=== PATIENT | female | born 1960 | race Caucasian/White ===

== ENCOUNTER 2024-12-01 06:02 | Day surgery (SDC) | payer MEDICARE, MEDICAID ==
[2024-12-01] VITALS (11 sets, daily range): BP systolic 128–154; BP diastolic 64–80; TEMP 97.2–98.1; O2SAT 91–96
[~2024-12-01] VITALS: Ht 167.6 cm; Wt 95.3 kg
[~2024-12-01 06:02] MED LIST: ALEN70TA82 PO; AMIT50TA PO; ANOR1AER INH; ATOR40TA75 PO; DULO20CA27 PO; HM C500T4 PO; HYDR-3490 PO; IBUP1TAB6 PO; IPRA0.00 INH; METO100T5 PO; THERTAB52 PO; VITA1CAP55 PO
[2024-12-01] MEDS ORDERED: ACETAMINOPHEN 1000MG/100ML IV BAG As Ordered ONE (06:45)
[2024-12-01] MEDS ORDERED: SUGAMMADEX SODIUM 500 MG/5 ML VIAL As Ordered ONE (06:50)
[2024-12-01] MEDS ORDERED: ROCURONIUM BROMIDE 50MG/5ML VIAL As Ordered ONE (06:50)
[2024-12-01] MEDS ORDERED: LIDOCAINE 2% 100MG/5ML SDV (FOR ANES.) As Ordered ONE (06:51)
[2024-12-01] MEDS ORDERED: ONDANSETRON 4MG 2ML VIAL As Ordered ONE (06:51)
[2024-12-01] MEDS ORDERED: propofoL 200 MG/20 ML VIAL As Ordered ONE (06:51)
[2024-12-01] MEDS ORDERED: HYDROmorphone HCL 2MG/ML 1ML VIAL As Ordered ONE (06:55)
[2024-12-01] MEDS ORDERED: MIDAZOLAM INJ 2MG/2ML VIAL As Ordered ONE (06:55)
[2024-12-01] MEDS ORDERED: fentaNYL 100 MCG/2 ML INJECTION As Ordered ONE (06:56)
[2024-12-01] MEDS ORDERED: ACETAMINOPHEN 325 MG TAB PO PRN (07:20)
[2024-12-01] MEDS: ceFAZolin SOD 2 GM IV ONCE IV ONE (07:40)
[2024-12-01] MEDS: ceFAZolin SOD 1 GM in DEXTROSE 5% (D5W) ADV/MINI-BAG 50 ML IV SCH (07:40)
[2024-12-01] MEDS ORDERED: GLYCOPYRROLATE INJ 0.2 MG/ML 2 ML VIAL As Ordered ONE (08:00)
[2024-12-01] MEDS ORDERED: AMLO25TA PO (08:04)
[2024-12-01] MEDS ORDERED: HOME MED LIST COMPLETE! XX SCH (08:05)
[2024-12-01] MEDS: MANNITOL As Ordered ONE (09:23)
[2024-12-01] MEDS: LIDOCAINE 1% SDV 30ML VIAL As Ordered ONE (11:10)
[2024-12-01] MEDS: ceFAZolin SODIUM 2 GM VIAL As Ordered ONE (11:25)
[2024-12-01] MEDS ORDERED: ONDANSETRON 4MG 2ML VIAL IV PRN (11:30)
[2024-12-01] MEDS ORDERED: oxyCODONE 5MG TAB PO PRN (11:30)
[2024-12-01] MEDS ORDERED: fentaNYL 100 MCG/2 ML INJECTION IV PRN (11:30)
[2024-12-01 12:34] LABS: HEMATOCRIT 36.6 % (36.0-47.0); HEMOGLOBIN 11.5 g/dl (12.0-15.5); MEAN CORPUSCULAR HEMOGLOBIN 28.1 pg (27.0-33.0); MEAN CORPUSCULAR HGB CONC 31.4 g/dl (32.0-36.5); MEAN CORPUSCULAR VOLUME 89.5 fl (80.0-96.0); PLATELET COUNT, AUTOMATED 161 10^3/uL (150-450); RED BLOOD COUNT 4.09 10^6/uL (4.00-5.40); WHITE BLOOD COUNT 5.8 10^3/uL (4.0-10.0)
[2024-12-01] MEDS: LR 1,000 ML IV SCH (12:40)
[2024-12-01] MEDS: NS (Normal Saline) 0.9% 1,000 ML IV SCH (12:46)
[2024-12-01 12:59] LABS: CALCIUM LEVEL 8.5 MG/DL (8.3-10.6); CREATININE FOR GFR 0.89 MG/DL (0.55-1.30); GLOMERULAR FILTRATION RATE 71.9 (>45); POTASSIUM SERUM 3.9 MMOL/L (3.5-5.1)
[2024-12-01] MEDS ORDERED: METO1TAB33 PO (13:24)
[2024-12-01] MEDS: ONDANSETRON 4MG 2ML VIAL IV PRN (13:27)
[2024-12-01] MEDS: PERCOCET 5MG/325MG TAB PO PRN (16:41)
[2024-12-01] MEDS ORDERED: METOPROLOL TARTRATE 100MG TAB PO SCH ×2 (21:00)
[2024-12-01] MEDS: DOCUSATE SODIUM 100MG CAPSULE PO SCH (21:00)
[2024-12-01] MEDS: ATORVASTATIN 20 MG TAB PO SCH (21:15)
[2024-12-01] MEDS: AMITRIPTYLINE 50 MG TAB PO SCH (21:15)
[2024-12-01] MEDS: METOPROLOL SUCC. 50MG *XL* TAB PO SCH (21:21)
[2024-12-02] VITALS: BP 111/64; TEMP 97.9; O2SAT 90
[2024-12-02 04:00] VITALS: BP 110/65; TEMP 98.1; O2SAT 92
[2024-12-02 05:36] LABS: HEMATOCRIT 31.3 % (36.0-47.0); MEAN CORPUSCULAR HEMOGLOBIN 28.1 pg (27.0-33.0); MEAN CORPUSCULAR HGB CONC 31.9 g/dl (32.0-36.5); MEAN CORPUSCULAR VOLUME 87.9 fl (80.0-96.0); PLATELET COUNT, AUTOMATED 161 10^3/uL (150-450); RED BLOOD COUNT 3.56 10^6/uL (4.00-5.40); WHITE BLOOD COUNT 9.3 10^3/uL (4.0-10.0)
[2024-12-02 05:55] LABS: CALCIUM LEVEL 8.6 MG/DL (8.3-10.6); CREATININE FOR GFR 1.07 MG/DL (0.55-1.30); GLOMERULAR FILTRATION RATE 57.6 (>45); POTASSIUM SERUM 4.1 MMOL/L (3.5-5.1)
[2024-12-02 07:42] VITALS: BP 117/67; TEMP 98.4; O2SAT 90
[2024-12-02] MEDS: PERCOCET 5MG/325MG TAB PO PRN (07:58)
[2024-12-02] MEDS ORDERED: PERCOCET PO (08:32)
[2024-12-02] MEDS ORDERED: COLA100C5 PO (08:32)
[2024-12-02 08:40] VITALS: BP 117/67
== END 2024-12-02 12:57 | disposition home or self-care (01) ==
LOC: M SDC 06:02 → M MSPAV 12:30 → M SDC 12-02 12:57
PROVIDERS: ATTEND Urology
DX: C64.2 Malignant neoplasm of left kidney, except renal pelvis (principal); I10 Essential (primary) hypertension; K58.8 Other irritable bowel syndrome; E04.1 Nontoxic single thyroid nodule; K22.70 Barrett's esophagus without dysplasia; J44.9 Chronic obstructive pulmonary disease, unspecified; K21.9 Gastro-esophageal reflux disease without esophagitis; F41.9 Anxiety disorder, unspecified; Z87.891 Personal history of nicotine dependence; G62.9 Polyneuropathy, unspecified; Z79.899 Other long term (current) drug therapy
CPT/HCPCS: 36415; 50543; 80048; 85027; 86850; 86900; 86901; 88307; 96361; 96365; 96375; 96376; J0131; J0665; J0690; J1100; J1171; J1596; J2150; J2250; J2405; J3010; S2900